=== PATIENT | male | born 1940 | race Caucasian/White ===

== ENCOUNTER 2022-09-14 14:52 | Emergency (ER) | payer MEDICARE ==
[~2022-09-14] VITALS: Ht 172.7 cm; Wt 63.5 kg
[2022-09-14] MEDS ORDERED: DEXTROSE 5%/0.45% SOD CHL 1,000 ML IV SCH (15:15)
[2022-09-14] MEDS ORDERED: DEXTROSE 50% SYRINGE 50 ML IV ONE (15:15)
[2022-09-14 15:37] LABS: BASOPHILS % 0.3 % (0.0-1.0); EOSINOPHILS # (AUTO) 0.2 (0.0-0.4); EOSINOPHILS % 2.4 % (0.0-6.0); HEMATOCRIT 39.2 % (38.2-49.6); HEMOGLOBIN 12.7 g/dL (14.0-18.0); LYMPHOCYTES # (AUTO) 1.3 (1.0-3.2); LYMPHOCYTES % 16.6 % (18.0-39.1); MEAN CORPUSCULAR HGB CONC 32.4 g/dL (31-35); MEAN CORPUSCULAR VOLUME 86.5 fL (81-99); MONOCYTES # (AUTO) 0.7 (0.2-0.8); MONOCYTES % 9.3 % (4.4-11.3); NEUTROPHILS # (AUTO) 5.6 (2.1-6.9); PLATELET COUNT 261 x10e3/uL (140-360); RED BLOOD COUNT 4.53 x10e6/uL (4.3-5.7); RED CELL DISTRIBUTION WIDTH 14.2 % (11.7-14.4)
[2022-09-14 15:48] LABS: INR 0.99; PROTHROMBIN TIME 13.6 seconds (11.9-14.5)
[2022-09-14 15:49] LABS: PARTIAL THROMBOPLASTIN TIME 30.4 seconds (23.8-35.5)
[2022-09-14 15:55] LABS: ALANINE AMINOTRANSFERASE 6 IU/L (0-55); ALBUMIN/GLOBULIN RATIO 0.8 (0.8-2.0); ALKALINE PHOSPHATASE 53 IU/L (40-150); ANION GAP 11.9 mmol/L (8-16); BLOOD UREA NITROGEN 15 mg/dL (7-26); BUN/CREATININE RATIO 21 (6-25); CALCIUM 10.4 mg/dL (8.4-10.2); CARBON DIOXIDE 26 mmol/L (22-29); CHLORIDE 101 mmol/L (98-107); CREATINE KINASE 34 IU/L (30-200); CREATININE, SERUM 0.72 mg/dL (0.72-1.25); GLUCOSE 80 mg/dL (74-118); MAGNESIUM 1.6 MG/DL (1.3-2.1); POTASSIUM 4.9 mmol/L (3.5-5.1); SODIUM 134 mmol/L (136-145)
[2022-09-14 16:23] LABS: CLARITY,URINE SL CLOUDY (CLEAR); COLOR,URINE YELLOW (YELLOW); KETONES,URINE 1+ (NEGATIVE); LEUKOCYTE ESTERASE ,URINE NEGATIVE (NEGATIVE); NITRITE,URINE NEGATIVE (NEGATIVE); PROTEIN,URINE DIPSTICK TRACE (NEGATIVE); URINE UROBILINOGEN 1 mg/dL (0.2 - 1)
[2022-09-14 16:38] LABS: RBC,URINE 0-5 /HPF (0-5)
[2022-09-14 18:27] VITALS: BP 123/56; PULSE 65; RESP 15; TEMP 98.7; O2SAT 100
== END 2022-09-14 18:24 | disposition home or self-care (01) ==
LOC: ER 14:56
DX: R42 Dizziness and giddiness (principal); R41.0 Disorientation, unspecified; R13.10 Dysphagia, unspecified; R94.31 Abnormal electrocardiogram [ECG] [EKG]; Z20.822 Contact with and (suspected) exposure to COVID-19
CPT/HCPCS: 0223U; 36415; 70450; 71045; 80053; 81001; 82550; 82948; 83735; 84484; 85025; 85610; 85730; 87086; 93005; 99284; J7799

== ENCOUNTER 2023-11-25 11:00 | Outpatient (RCR) | payer MEDICARE ==
[~2023-11-25 11:00] MED LIST: ALTOPREV40 MG PO; AZITHROMYC200 MG/5 M PEG; BENZONATATE200 MG PO; CEFPODOXIME PR200 MG PO; DYMISTA NASAL S23 GM INH; FLOMAX0.4 MG PO; LOSARTAN POTASS25 MG PO; METFORMIN HCL500 MG PO; PROVENTIL HFA6.7 GM INH
== END 2023-11-27 | disposition home or self-care (01) ==
LOC: ST 11:00
PROVIDERS: ATTEND Internal Medicine
DX: R13.13 Dysphagia, pharyngeal phase (principal)

== ENCOUNTER 2023-12-23 10:49 | Outpatient (RCR) | payer MEDICARE | END 2023-12-27 | LOC: ST 10:49 | PROVIDERS: ATTEND Internal Medicine | DX: R13.13 Dysphagia, pharyngeal phase (principal); F03.90 Unspecified dementia, unspecified severity, without behavioral disturbance, psychotic disturbance, mood disturbance, and anxiety; I10 Essential (primary) hypertension ==

== ENCOUNTER 2023-12-30 11:00 | Outpatient (RCR) | payer MEDICARE ==
[2024-01-18] MEDS ORDERED: FINASTERIDE5 MG PO (14:56)
[2024-01-18] MEDS ORDERED: MELATONIN3 MG PO (14:56)
[2024-01-18] MEDS ORDERED: SODIUM BICARBO650 MG PO (14:56)
[2024-01-18] MEDS ORDERED: ARICEPT5 MG PO (14:56)
[2024-01-18] MEDS ORDERED: PROTONIX20 MG PO (14:56)
[2024-01-26] MEDS ORDERED: [UNRECOGNIZED DRUG - OTHER] OU (05:59)
== END 2024-01-27 ==
LOC: ST 11:00
PROVIDERS: ATTEND Internal Medicine Gastroenterology
DX: R13.13 Dysphagia, pharyngeal phase (principal); F03.90 Unspecified dementia, unspecified severity, without behavioral disturbance, psychotic disturbance, mood disturbance, and anxiety; I10 Essential (primary) hypertension

== ENCOUNTER 2024-01-01 22:38 | Emergency (ER) | payer MEDICARE ==
[~2024-01-01] VITALS: Ht 167.6 cm; Wt 63.5 kg
[2024-01-01 23:10] VITALS: TEMP 97.8
[2024-01-01 23:30] VITALS: PULSE 60; RESP 19
[2024-01-01 23:43] VITALS: BP 159/64; O2SAT 100
== END 2024-01-01 23:40 | disposition home or self-care (01) ==
LOC: ER 22:40
DX: Z43.1 Encounter for attention to gastrostomy (principal); I10 Essential (primary) hypertension; E11.9 Type 2 diabetes mellitus without complications; E78.5 Hyperlipidemia, unspecified; Z95.810 Presence of automatic (implantable) cardiac defibrillator
CPT/HCPCS: 99283

== ENCOUNTER → 2024-01-04 | Outpatient (REF) | payer MEDICARE | LOC: DX 10:39 | PROVIDERS: ATTEND Family Medicine | DX: R13.10 Dysphagia, unspecified (principal); I10 Essential (primary) hypertension; F03.90 Unspecified dementia, unspecified severity, without behavioral disturbance, psychotic disturbance, mood disturbance, and anxiety | CPT/HCPCS: 74230 ==

== ENCOUNTER → 2024-01-26 | Day surgery (SDC) | payer MEDICARE ==
[2024-01-19 15:41] LABS: BASOPHILS % 0.5 % (0.0-1.0); EOSINOPHILS # (AUTO) 0.1 (0.0-0.4); EOSINOPHILS % 1.9 % (0.0-6.0); HEMATOCRIT 38.4 % (38.2-49.6); HEMOGLOBIN 12.1 g/dL (14.0-18.0); LYMPHOCYTES # (AUTO) 0.9 (1.0-3.2); LYMPHOCYTES % 21.9 % (18.0-39.1); MEAN CORPUSCULAR HEMOGLOBIN 30.1 pg (28-32); MEAN CORPUSCULAR HGB CONC 31.5 g/dL (31-35); MEAN CORPUSCULAR VOLUME 95.5 fL (81-99); MONOCYTES # (AUTO) 0.5 (0.2-0.8); MONOCYTES % 11.8 % (4.4-11.3); NEUTROPHILS # (AUTO) 2.6 (2.1-6.9); NEUTROPHILS % 63.2 % (38.7-80.0); PLATELET COUNT 133 x10e3/uL (140-360); RED BLOOD COUNT 4.02 x10e6/uL (4.3-5.7); RED CELL DISTRIBUTION WIDTH 14.6 % (11.7-14.4); WHITE BLOOD COUNT 4.15 x10e3/uL (4.8-10.8)
[~2024-01-26] MED LIST changes: +ARICEPT5 MG PO; +FINASTERIDE5 MG PO; +MELATONIN3 MG PO; +PROTONIX20 MG PO; +SODIUM BICARBO650 MG PO; +[UNRECOGNIZED DRUG - OTHER] OU
[2024-01-26] MEDS: LACTATED RINGER'S 1,000 ML ONE (06:28)
[2024-01-26 07:36] VITALS: TEMP 97.6
[2024-01-26 08:00] VITALS: BP 143/88; PULSE 67; RESP 16; O2SAT 97
== END | disposition home or self-care (01) ==
LOC: OR 05:14
PROVIDERS: ATTEND Internal Medicine Gastroenterology
DX: R13.12 Dysphagia, oropharyngeal phase (principal); K29.50 Unspecified chronic gastritis without bleeding; Z43.1 Encounter for attention to gastrostomy; K44.9 Diaphragmatic hernia without obstruction or gangrene; K31.89 Other diseases of stomach and duodenum; Z71.3 Dietary counseling and surveillance; I10 Essential (primary) hypertension; Z71.89 Other specified counseling; E78.5 Hyperlipidemia, unspecified; E11.9 Type 2 diabetes mellitus without complications; N40.1 Benign prostatic hyperplasia with lower urinary tract symptoms; N13.8 Other obstructive and reflux uropathy; F03.90 Unspecified dementia, unspecified severity, without behavioral disturbance, psychotic disturbance, mood disturbance, and anxiety; Z01.810 Encounter for preprocedural cardiovascular examination; Z01.812 Encounter for preprocedural laboratory examination; Z79.84 Long term (current) use of oral hypoglycemic drugs; Z95.0 Presence of cardiac pacemaker; Z87.01 Personal history of pneumonia (recurrent)
CPT/HCPCS: 36415 ×2; 43239; 43246; 82948; 85025; 93005; J7121

== ENCOUNTER 2024-03-29 23:14 | Emergency (ER) | payer MEDICARE ==
[~2024-03-29] VITALS: Ht 172.7 cm; Wt 55.8 kg
[2024-03-30 00:15] LABS: BASOPHILS % 0.1 % (0.0-1.0); EOSINOPHILS % 0.1 % (0.0-6.0); HEMATOCRIT 36.3 % (38.2-49.6); HEMOGLOBIN 11.4 g/dL (14.0-18.0); LYMPHOCYTES # (AUTO) 0.2 (1.0-3.2); LYMPHOCYTES % 1.7 % (18.0-39.1); MEAN CORPUSCULAR HEMOGLOBIN 29.9 pg (28-32); MEAN CORPUSCULAR HGB CONC 31.4 g/dL (31-35); MEAN CORPUSCULAR VOLUME 95.3 fL (81-99); MONOCYTES # (AUTO) 0.4 (0.2-0.8); MONOCYTES % 4.2 % (4.4-11.3); NEUTROPHILS % 93.7 % (38.7-80.0); PLATELET COUNT 164 x10e3/uL (140-360); RED BLOOD COUNT 3.81 x10e6/uL (4.3-5.7); RED CELL DISTRIBUTION WIDTH 13.5 % (11.7-14.4); WHITE BLOOD COUNT 8.58 x10e3/uL (4.8-10.8)
[2024-03-30] MEDS: KETOROLAC TROMETHAMINE 30 MG/ML VIAL IV STA (00:18)
[2024-03-30] MEDS: LACTATED RINGER'S 1,000 ML INJ ONE (00:19)
[2024-03-30 00:36] LABS: ALBUMIN/GLOBULIN RATIO 0.9 (0.8-2.0); ANION GAP 14.4 mmol/L (8-16); BILIRUBIN,TOTAL 0.8 mg/dL (0.2-1.2); CALCIUM 10.1 mg/dL (8.4-10.2); CREATININE, SERUM 0.66 mg/dL (0.72-1.25); POTASSIUM 4.4 mmol/L (3.5-5.1); TOTAL PROTEIN 6.2 g/dL (6.5-8.1)
[2024-03-30 01:04] LABS: CORONAVIRUS COVID-19 AG NEGATIVE (NEGATIVE); INFLUENZA A AG NEGATIVE (NEGATIVE); INFLUENZA B AG NEGATIVE (NEGATIVE)
[2024-03-30 01:48] LABS: BILIRUBIN,URINE NEGATIVE (NEGATIVE); CLARITY,URINE CLEAR (CLEAR); COLOR,URINE YELLOW (YELLOW); GLUCOSE, URINE NEGATIVE (NEGATIVE); KETONES,URINE NEGATIVE (NEGATIVE); LEUKOCYTE ESTERASE ,URINE SMALL (NEGATIVE); NITRITE,URINE NEGATIVE (NEGATIVE); PH,URINE 7.5 (5 - 7); PROTEIN,URINE DIPSTICK TRACE (NEGATIVE)
[2024-03-30 02:14] LABS: BACTERIA,URINE MANY /HPF; EPITHELIAL CELLS,URINE FEW /LPF; RBC,URINE 0-5 /HPF (0-5); WBC,URINE (MAN) 21-50 /HPF (0-5)
[2024-03-30 02:15] VITALS: PULSE 81; RESP 16; TEMP 99.6; O2SAT 96
[2024-03-30] MEDS ORDERED: CEFDINIR300 MG PO (02:16)
[2024-03-30] MEDS ORDERED: XOFLUZA40 MG PO (02:20)
== END 2024-03-30 02:40 | disposition home or self-care (01) ==
LOC: ER 23:18
DX: R50.9 Fever, unspecified (principal); N39.0 Urinary tract infection, site not specified; R05.9 Cough, unspecified; R42 Dizziness and giddiness; E11.65 Type 2 diabetes mellitus with hyperglycemia; I10 Essential (primary) hypertension; E78.5 Hyperlipidemia, unspecified; K21.9 Gastro-esophageal reflux disease without esophagitis; R94.31 Abnormal electrocardiogram [ECG] [EKG]; Z95.810 Presence of automatic (implantable) cardiac defibrillator
CPT/HCPCS: 36415; 70450; 71045; 80053; 81001; 84484; 85025; 87428; 93005; 99284; J1885; J7121

== ENCOUNTER 2024-04-02 04:01 | Inpatient (IN) | payer MEDICARE ==
[~2024-04-02] VITALS: Ht 172.7 cm; Wt 55.8 kg
[2024-04-02] VITALS (8 sets, daily range): BP systolic 108–135; BP diastolic 47–60; PULSE 72–87; RESP 18–20; TEMP 98–99.4; O2SAT 90–97
[~2024-04-02 04:01] MED LIST changes: +CEFDINIR300 MG PO; +XOFLUZA40 MG PO
[2024-04-02] MEDS: ACETAMINOPHEN 1000 MG/100 ML IV STA (04:31)
[2024-04-02] MEDS: SODIUM CHLORIDE 0.9% 1000ML 1,000 ML IV ONE ×2 (04:31→05:41)
[2024-04-02 04:50] LABS: BASOPHILS % 0.3 % (0.0-1.0); EOSINOPHILS % 0.3 % (0.0-6.0); HEMATOCRIT 36.1 % (38.2-49.6); HEMOGLOBIN 11.1 g/dL (14.0-18.0); LYMPHOCYTES # (AUTO) 0.4 (1.0-3.2); LYMPHOCYTES % 12.3 % (18.0-39.1); MEAN CORPUSCULAR HGB CONC 30.7 g/dL (31-35); MEAN CORPUSCULAR VOLUME 97.6 fL (81-99); MONOCYTES # (AUTO) 0.2 (0.2-0.8); MONOCYTES % 7.6 % (4.4-11.3); NEUTROPHILS # (AUTO) 2.5 (2.1-6.9); NEUTROPHILS % 78.6 % (38.7-80.0); PLATELET COUNT 113 x10e3/uL (140-360); RED CELL DISTRIBUTION WIDTH 13.5 % (11.7-14.4); WHITE BLOOD COUNT 3.16 x10e3/uL (4.8-10.8)
[2024-04-02 05:06] LABS: ALBUMIN 2.6 g/dL (3.5-5.0); ALBUMIN/GLOBULIN RATIO 0.7 (0.8-2.0); ANION GAP 14.6 mmol/L (8-16); BILIRUBIN,TOTAL 0.8 mg/dL (0.2-1.2); CALCIUM 10.6 mg/dL (8.4-10.2); CORONAVIRUS COVID-19 AG NEGATIVE (NEGATIVE); CREATININE, SERUM 0.64 mg/dL (0.72-1.25); INFLUENZA B AG NEGATIVE (NEGATIVE); POTASSIUM 4.6 mmol/L (3.5-5.1); TOTAL PROTEIN 6.4 g/dL (6.5-8.1)
[2024-04-02 05:07] LABS: INFLUENZA A AG POSITIVE (NEGATIVE)
[2024-04-02] MEDS ORDERED: DEXTROSE 50% SYRINGE 50 ML IV PRN (05:30)
[2024-04-02] MEDS ORDERED: ACETAMINOPHEN 1000 MG/100 ML IV PRN (05:30)
[2024-04-02] MEDS ORDERED: ONDANSETRON HCL INJ 2MG/ML 2ML 2 MG/ML VIAL IV PRN ×2 (05:30)
[2024-04-02] MEDS: INSULIN REGULAR, HUMAN 100 UNIT/1 ML SQ SCH (07:30)
[2024-04-02] MEDS: OSELTAMIVIR PHOSPHATE 75 MG CAP PO ONE (08:54)
[2024-04-02] MEDS ORDERED: GUAIFENESIN 200 MG/10 ML UDC PO PRN (14:15)
[2024-04-02 14:54] LABS: CLARITY,URINE SL CLOUDY (CLEAR); COLOR,URINE YELLOW (YELLOW); GLUCOSE, URINE NEGATIVE (NEGATIVE); LEUKOCYTE ESTERASE ,URINE NEGATIVE (NEGATIVE); NITRITE,URINE NEGATIVE (NEGATIVE); PH,URINE 6.5 (5 - 7); PROTEIN,URINE DIPSTICK 2+ (NEGATIVE)
[2024-04-02 14:55] LABS: BILIRUBIN,URINE NEGATIVE (NEGATIVE); KETONES,URINE NEGATIVE (NEGATIVE); URINE UROBILINOGEN 0.2 mg/dL (0.2 - 1)
[2024-04-02 15:05] LABS: BACTERIA,URINE RARE /HPF; RBC,URINE 0-5 /HPF (0-5); WBC,URINE (MAN) 0-5 /HPF (0-5)
[2024-04-02 15:06] LABS: EPITHELIAL CELLS,URINE FEW /LPF
[2024-04-02] MEDS: LOSARTAN POTASSIUM 25 MG TAB PO SCH (17:00)
[2024-04-02] MEDS: PANTOPRAZOLE SOD 40 MG TABEC PO SCH (17:12)
[2024-04-02] MEDS: MELATONIN 3 MG TAB PO PRN (20:29)
[2024-04-02] MEDS: DONEPEZIL HCL 5 MG TAB PO SCH (20:29)
[2024-04-02] MEDS: HEPARIN SOD (PORCINE) 5,000 UNIT/ML VIAL SC SCH (21:00)
[2024-04-03] VITALS (11 sets, daily range): BP systolic 116–163; BP diastolic 51–59; PULSE 60–84; RESP 18–22; TEMP 97.8–98.4; O2SAT 87–99
[2024-04-03 05:44] LABS: BASOPHILS % 0.3 % (0.0-1.0); HEMATOCRIT 30.1 % (38.2-49.6); HEMOGLOBIN 9.3 g/dL (14.0-18.0); LYMPHOCYTES # (AUTO) 0.5 (1.0-3.2); LYMPHOCYTES % 13.5 % (18.0-39.1); MEAN CORPUSCULAR HEMOGLOBIN 29.9 pg (28-32); MEAN CORPUSCULAR HGB CONC 30.9 g/dL (31-35); MEAN CORPUSCULAR VOLUME 96.8 fL (81-99); MONOCYTES # (AUTO) 0.4 (0.2-0.8); MONOCYTES % 11.1 % (4.4-11.3); NEUTROPHILS # (AUTO) 2.8 (2.1-6.9); NEUTROPHILS % 74.6 % (38.7-80.0); PLATELET COUNT 118 x10e3/uL (140-360); RED BLOOD COUNT 3.11 x10e6/uL (4.3-5.7); RED CELL DISTRIBUTION WIDTH 13.6 % (11.7-14.4); WHITE BLOOD COUNT 3.71 x10e3/uL (4.8-10.8)
[2024-04-03 06:27] LABS: ALBUMIN 1.9 g/dL (3.5-5.0); ALBUMIN/GLOBULIN RATIO 0.6 (0.8-2.0); ANION GAP 11.3 mmol/L (8-16); BILIRUBIN,TOTAL 0.6 mg/dL (0.2-1.2); CALCIUM 10.1 mg/dL (8.4-10.2); CREATININE, SERUM 0.53 mg/dL (0.72-1.25); POTASSIUM 4.3 mmol/L (3.5-5.1); TOTAL PROTEIN 5.3 g/dL (6.5-8.1)
[2024-04-03] MEDS: TAMSULOSIN HCL 0.4 MG CAP PO SCH (08:38)
[2024-04-03] MEDS: FINASTERIDE 5 MG TAB PO SCH (08:38)
[2024-04-03] MEDS: SODIUM BICARBONATE 650 MG TAB PO SCH (08:38)
[2024-04-03] MEDS: OSELTAMIVIR PHOSPHATE 30 MG CAPSULE PO SCH (08:39)
[2024-04-03] MEDS: ALBUTEROL/IPRATROPIUM 3 ML NEB NEB SCH (16:04)
[2024-04-03] MEDS: SIMVASTATIN 20 MG TAB PO SCH (21:01)
[2024-04-04] VITALS (11 sets, daily range): BP systolic 119–148; BP diastolic 48–64; PULSE 57–97; RESP 17–22; TEMP 97.4–98.9; O2SAT 60–100
[2024-04-04 05:52] LABS: BASOPHILS % 0.2 % (0.0-1.0); EOSINOPHILS % 0.2 % (0.0-6.0); HEMATOCRIT 29.6 % (38.2-49.6); HEMOGLOBIN 9.8 g/dL (14.0-18.0); LYMPHOCYTES # (AUTO) 0.5 (1.0-3.2); LYMPHOCYTES % 10.6 % (18.0-39.1); MEAN CORPUSCULAR HEMOGLOBIN 30.5 pg (28-32); MEAN CORPUSCULAR HGB CONC 33.1 g/dL (31-35); MONOCYTES # (AUTO) 0.6 (0.2-0.8); MONOCYTES % 13.8 % (4.4-11.3); NEUTROPHILS # (AUTO) 3.2 (2.1-6.9); NEUTROPHILS % 74.3 % (38.7-80.0); PLATELET COUNT 129 x10e3/uL (140-360); RED BLOOD COUNT 3.21 x10e6/uL (4.3-5.7); RED CELL DISTRIBUTION WIDTH 13.7 % (11.7-14.4); WHITE BLOOD COUNT 4.36 x10e3/uL (4.8-10.8)
[2024-04-04 05:54] LABS: MEAN CORPUSCULAR VOLUME 92.2 fL (81-99)
[2024-04-04] MEDS ORDERED: DOXYCYCLINE HY100 MG PO (12:45)
[2024-04-04] MEDS ORDERED: TAMIFLU30 MG PO (12:45)
== END 2024-04-04 17:53 | disposition home health service (06) | DRG 193 ==
LOC: ER 04:08 → ERHOLD 05:27 → MED/SURG3 06:30
PROVIDERS: ADMIT Internal Medicine; ATTEND Internal Medicine
DX: J10.00 Influenza due to other identified influenza virus with unspecified type of pneumonia (principal); E43 Unspecified severe protein-calorie malnutrition; N39.0 Urinary tract infection, site not specified; Z68.1 Body mass index [BMI] 19.9 or less, adult; I10 Essential (primary) hypertension; E78.00 Pure hypercholesterolemia, unspecified; E11.9 Type 2 diabetes mellitus without complications; N40.0 Benign prostatic hyperplasia without lower urinary tract symptoms; I49.5 Sick sinus syndrome; F03.90 Unspecified dementia, unspecified severity, without behavioral disturbance, psychotic disturbance, mood disturbance, and anxiety; R09.02 Hypoxemia; K21.9 Gastro-esophageal reflux disease without esophagitis; Z11.52 Encounter for screening for COVID-19; Z79.84 Long term (current) use of oral hypoglycemic drugs; Z95.0 Presence of cardiac pacemaker; Z90.79 Acquired absence of other genital organ(s)
CPT/HCPCS: 36415; 71045; 80053; 81001; 82948; 83605; 85025; 87040; 87086; 93005; 94640; 94760; 94799; 96372; 99252; 99284; J0696; J1644; J7030; J7050

== ENCOUNTER 2024-09-05 12:26 | Emergency (ER) | payer MEDICARE ==
[~2024-09-05] VITALS: Ht 172.7 cm; Wt 57.2 kg
[~2024-09-05 12:26] MED LIST changes: +DOXYCYCLINE HY100 MG PO; +TAMIFLU30 MG PO
[2024-09-05 13:30] VITALS: PULSE 62; RESP 18; TEMP 98; O2SAT 100
[2024-09-05] MEDS ORDERED: MUPIROCIN22 GM TOP (13:39)
== END 2024-09-05 13:56 | disposition home or self-care (01) ==
LOC: ER 12:56
DX: Z43.1 Encounter for attention to gastrostomy (principal); I10 Essential (primary) hypertension; E11.9 Type 2 diabetes mellitus without complications; E78.5 Hyperlipidemia, unspecified; K21.9 Gastro-esophageal reflux disease without esophagitis; Z95.810 Presence of automatic (implantable) cardiac defibrillator
CPT/HCPCS: 99283